=== PATIENT | female | born 1995 | race Caucasian/White ===

== ENCOUNTER 2017-03-22 23:11 | Inpatient (IN) ==
--- NOTE | 2017-03-22 21:58 | OB/GYN History & Physical ---
Date of Encounter: 03/22/17 Time of Encounter: 21:56 Assessment and Plan (1) 38 weeks gestation of Current visit: Yes Status: Acute (2) Uterine contractions Current visit: Yes Status: Acute SVE /-. Will allow pt to sit on birthing ball and/or walk. Plan to repeat SVE in 1-2 hours. History of Present Illness Chief complaint: contractions HPI: Ms. Garcia is a 21 year old female presenting at 38w 4d with c/o contractions that started around 1830 and are now every 5-6 minutes. Pt has a hx of fast labor and PPH due to retained placenta. She also reports urinary frequency and diarrhea today. No other complaints. Good FM. Past Med Surg Social Fam HX - Past Medical History Medical history: no medical history Psychiatric history: no psych history - Social History Smoking Status: Never smoker Smokeless Tobacco Status: No Alcohol use: none Drug use: none Obstetrical History - Pregnancies : 3 Para: 1 Term: 1 : 0 Ab's: 1 Livin - History/Complications History/Complications: PPH after discharge home. Found to have retained POC. Medications and Allergies Pnv No.122/Iron/Folic Acid [ Multi Tablet] 1 each PO DAILY 08/21/16 [ History] 3 Allergy/AdvReac Type Severity Reaction Status Date / Time No Known Allergies Allergy Verified 08/21/16 18:21 Review of System OB All systems PM: reviewed and no additional remarkable complaints except as stated Exam - Vital Signs Vital signs: Initial Vital Signs Temp Pulse Resp BP 99.0 F 96 16 140/69 03/22/17 21:42 03/22/17 21:42 03/22/17 21:42 03/22/17 21:42 - Constitutional Constitutional: well developed, well nourished, no acute distress - HEENT HEENT: Mucus Membranes Moist - Lungs Respiratory exam: CTAB - Cardiovascular Cardiovascular exam: RRR - Abdomen Abdomen: Present: gravid, non tender - Extremities Extremities exam: normal inspection, pedal edema (mild edema bilaterally) - Vulva Vulva: bilateral: normal - Cervix Dilation: 4 Effacement: 90 Station: -1 - Anus/Rectum Anus/Rectum: Present: normal perianal skin Results All other labs normal. - VTE Reasons for not Prescribing Prophylaxis: Treatment not Indicated - Low risk for VTE
[~2017-03-22 23:11] MED LIST: Famotidine 20 MG/2 ML VIAL IVP PRN; Metoclopramide 10 MG/2 ML VIAL IVP PRN
--- NOTE | 2017-03-22 23:14 | OB Labor Progress Note ---
Date of Encounter: 03/22/17 Time of Encounter: 23:06 Labor Progress Note - Subjective Subjective: Pt reports increased pain with contractions when she is in bed. - Cervix Cervix: 5/90/-1 - Heart Tones Heart Tones: Category I - Merriam Merriam: 2-3 minutes - Plan Plan: Admit for labor. Plan for AROM when able per pt request. Pt desires a natural labor. Will allow ambulation and positioning on birthing ball as long as FHT remain reassuring.
[2017-03-22 23:31] LABS: Basophils % 0.4 %; Eosinophils % 0.3 %; Hematocrit 28.8 % (35.3-44.9); Hemoglobin 9.7 g/dL (11.5-15.4); Immature Granulocytes % 0.5 % (0-4); Lymphocytes # 1.8 K/mcL (0.6-4.6); Lymphocytes % 16.3 %; Mean Corpuscular HGB Conc 33.7 g/dL (31.6-35.5); Mean Corpuscular Hemoglobin 29.8 pg (28.0-33.3); Mean Corpuscular Volume 88.3 fL (83.0-100.0); Mean Platelet Volume 11.4 fL (9.4-12.4); Monocytes # 0.6 K/mcL (0.0-1.3); Monocytes % 5.9 %; Neutrophils # 8.4 K/mcL (1.6-8.9); Platelet Count 236 K/mcL (140-400); Red Blood Count 3.26 M/mcL (3.82-4.97); Red Cell Distribution Width 13.1 % (11.5-14.5); Segmented Neutrophils % 76.6 %
[2017-03-23] MEDS ORDERED: Ringers Solution, Lactated 1,000 ML ONE (00:19)
[2017-03-23] MEDS ORDERED: Ringers Solution, Lactated 1,000 ML IVC SCH (00:30)
--- NOTE | 2017-03-23 03:23 | OB Labor Progress Note ---
Date of Encounter: 03/23/17 Time of Encounter: 03:21 Labor Progress Note - Subjective Subjective: Pt feels better when she is out of bed. - Heart Tones Heart Tones: Category I - Anton Anton: 2-4 minutes - Interventions Interventions: Pt up to bathroom to void and on birthing ball. - Plan Plan: Continue to monitor. Anticipate .
[2017-03-23] MEDS ORDERED: Oxytocin 20 units/ LR 1000 mL 20 UNIT/1,000 ML BAG IVC ONE ×2 (05:03→06:05)
[2017-03-23] MEDS ORDERED: Benzocaine/Menthol 56 GM AEROSOL SPRAY TP PRN ×2 (05:53→08:24)
[2017-03-23] MEDS ORDERED: Ibuprofen 600 MG TABLET PO ONE (05:53)
--- NOTE | 2017-03-23 06:02 | OB/GYN Procedure Note ---
Delivery - Delivery Date: 03/23/17 Provider: Nalini Harper Intrapartum events: none Delivery induction: none Delivery augmentation: rupture of membranes Delivery monitor: external FHT, external uterine Anesthesia: none Estimated Blood Loss: 450 - Infant (s) A Infant Delivery Date: 03/23/17 Infant Delivery Time: 05:24 Presentation: vertex Position: REBECCA Route of delivery: Gender: Male Viability: Viable Pounds: 7 Ounces: 15 Weight Gram: 3620 kg at 1 minute: 6 at 5 mins: 9 Shoulder Dystocia: encountered Shoulder Dystocia Maneuvers: Leandra maneuver, suprapubic pressure, Moya Screw maneuver, Reverse Moya Screw maneu Specimens collected: cord blood, venous cord gases, arterial cord gases Placenta: spontaneous (accessory lobe, marginal cord insertion) Cord: 3 umbilical vessels - Repair Episiotomy: none Laceration Description: None - Complications Delivery complications: uterine atony Delivery comments: Pt presented in active labor and progressed normally to complete dilation. She pushed effectively to of viable male weighing 7lbs 15oz with apgars 6 at one minute and 9 at five minutes. A shoulder dystocia was encountered. Dr. Bowen was called immediately to attend. McRobert's maneuver and suprapubic pressure did not resolve the dystocia. Moya screw maneuver was ineffective and reverse moya screw maneuver was effective to deliver anterior shoulder with maternal effort. The was not vigorous on the mother's abdomen so the cord was clamped and cut within about 30 seconds and the infant was taken to the warmer. Cord gases were requested. The placenta delivered spontaneous and intact and then brisk lochia was noted. Pitocin started immediately and bimanual compression was performed to manage bleeding. Methergine was then administered. Fundal tone then improved and lochia slowed. EBL 450ml. A thorough exam was performed and no repair was needed. Mother and baby stable in LDR following procedure. - Disposition Mom disposition: stable in LDR [place] disposition: stable in LDR
[2017-03-23] MEDS ORDERED: Acetaminophen 325 MG TABLET PO PRN (08:24)
[2017-03-23] MEDS ORDERED: Oxytocin 20 units/ LR 1000 mL 20 UNIT/1,000 ML BAG IVC SCH (08:24)
[2017-03-23] MEDS ORDERED: Measles/Mumps/Rubella Vacc 0.5 ML VIAL SQ PRN (08:24)
[2017-03-23] MEDS ORDERED: Lanolin 7 G OINT...G. TP PRN (08:24)
[2017-03-23] MEDS: Prenatal Vit/FA 1 EACH TABLET PO SCH (09:04)
[2017-03-23] MEDS: Ibuprofen 600 MG TABLET PO PRN ×2 (12:07→17:51)
[2017-03-23] MEDS ORDERED: Methylergonovine 0.2 MG/ML AMPUL IM ONE (15:28)
[2017-03-24] MEDS: Ibuprofen 600 MG TABLET PO PRN ×2 (02:01→08:16)
[2017-03-24] MEDS: Prenatal Vit/FA 1 EACH TABLET PO SCH (08:17)
--- NOTE | 2017-03-24 09:09 | Discharge Summary ---
Date of Encounter: 03/24/17 Time of Encounter: 09:07 - Discharge Diagnosis (1) Vaginal delivery Priority: Primary Status: Acute Comments: pt meeting all milestones, pain well managed on po pain medication, , desires discharge - Discharge Medications Prescriptions: Ibuprofen [Motrin] 600 mg PO Q6HR PRN #60 tab PRN Reason: Cramping Docusate [Colace] 100 mg PO BID #60 Ferrous Sulfate 325 mg PO DAILY #60 tab Home Medications: Pnv No.122/Iron/Folic Acid [ Multi Tablet] 1 each PO DAILY 08/21/16 [ History] Acetaminophen [Tylenol] 650 mg PO Q6HR PRN tab 03/24/17 [Rx] Benzocaine/Menthol [place] [Dermoplast [place]] 1 appl TP QID PRN aerosol 03/24/17 [Rx] Docusate [Colace] 100 mg PO BID #60 03/24/17 [Rx] Ferrous Sulfate 325 mg PO DAILY #60 tab 03/24/17 [Rx] Ibuprofen [Motrin] 600 mg PO Q6HR PRN #60 tab 03/24/17 [Rx] Lanolin [Lansinoh] 1 appl TP Q4HR PRN 03/24/17 [Rx] Mupirocin [Bactroban Oint] 1 appl TP BID 03/24/17 [Rx] Vit/FA 1 each PO DAILY tab 03/24/17 [Rx] Allergies/Adverse Reactions: 3 Allergy/AdvReac Type Severity Reaction Status Date / Time No Known Allergies Allergy Verified 08/21/16 18:21 Data Procedures and tests throughout hospitalization: Laboratory Tests 03/22/17 23:20 WBC 10.9 RBC 3.26 L Hgb 9.7 L Hct 28.8 L MCV 88.3 MCH 29.8 MCHC 33.7 RDW 13.1 Plt Count 236 MPV 11.4 Immature Gran % 0.5 Seg Neutrophils % 76.6 Lymphocytes % 16.3 Monocytes % 5.9 Eosinophils % 0.3 Basophils % 0.4 Neutrophils # 8.4 Lymphocytes # 1.8 Monocytes # 0.6 Eosinophils # 0.0 Basophils # 0.0 Date of admission: 03/22/17 23:11 Consults: 03/23/17 08:24 Consult to [employer] Developer [CONS] Routine Comment: Vaginal delivery, consult needed Discharging clinician: Shanda Wang Anticipated date of discharge: 03/24/17 - Patient Status Disposition: Home, Self-Care Condition: Good Functional capacity at discharge: independent ambulation Overall status at discharge: patient is back to baseline - Discharge Instructions Instructions: Your Baby (DC) - Diet and Activity Activity: resume usual activities as tolerated Diet: regular diet Hospital Course Reason for admission: IUP - Delivery: Episiotomy: none Laceration: none Other procedures: none complications: none Discharge diagnosis: IUP at term delivered [place] baby: male Hospital course: Delivery - Delivery Date: 03/23/17 Provider: Nalini Harper Intrapartum events: none Delivery induction: none Delivery augmentation: rupture of membranes Delivery monitor: external FHT, external uterine Anesthesia: none Estimated Blood Loss: 450 - (s) A Infant Delivery Date: 03/23/17 Delivery Time: 05:24 Presentation: vertex Position: REBECCA Route of delivery: Gender: Male Viability: Viable Pounds: 7 Ounces: 15 Weight Gram: 3620 kg at 1 minute: 6 at 5 mins: 9 Shoulder Dystocia: encountered Shoulder Dystocia Maneuvers: Leandra maneuver, suprapubic pressure, Baker Screw maneuver, Reverse Baker Screw maneu Specimens collected: cord blood, venous cord gases, arterial cord gases Placenta: spontaneous (accessory lobe, marginal cord insertion) Cord: 3 umbilical vessels - Repair Episiotomy: none Laceration Description: None - Complications Delivery complications: uterine atony Delivery comments: Pt presented in active labor and progressed normally to complete dilation. She pushed effectively to of viable male weighing 7lbs 15oz with apgars 6 at one minute and 9 at five minutes. A shoulder dystocia was encountered. Dr. Bowen was called immediately to attend. McRobert's maneuver and suprapubic pressure did not resolve the dystocia. Baker screw maneuver was ineffective and reverse baker screw maneuver was effective to deliver anterior shoulder with maternal effort. The infant was not vigorous on the mother's abdomen so the cord was clamped and cut within about 30 seconds and the was taken to the warmer. Cord gases were requested. The placenta delivered spontaneous and intact and then brisk lochia was noted. Pitocin started immediately and bimanual compression was performed to manage bleeding. Methergine was then administered. Fundal tone then improved and lochia slowed. EBL 450ml. A thorough exam was performed and no repair was needed. Mother and baby stable in LDR following procedure. - Disposition Mom disposition: stable in PP and apprpraite for discharge Time Attestation: Total time spent providing and/or coordinating discharge services: Time Spent: Less than 30 minutes Exam - Constitutional Vitals: Temp Pulse Resp BP Pulse Ox 97.9 F 64 16 109/72 99 03/24/17 02:05 03/24/17 02:05 03/24/17 02:05 03/24/17 02:05 03/24/17 02:05 General appearance IM: A&O X 3 - Respiratory Respiratory exam: Present: CTAB - Cardiovascular Cardiovascular exam IM: Present: RRR - GI/Abdominal GI/Abdominal exam IM: soft - Uterine Tone: Firm Uterus Position: At Umbilicus - Neurological Exam Neurological exam: normal gait, oriented X3, reflexes normal - Psychiatric Additional comments: reports good mood.
[2017-03-24 10:43] VITALS: BP 102/54
== END 2017-03-24 15:29 | disposition home or self-care (01) | DRG 560 ==
LOC: 1NENULAB → 1NENUOBS 03-23 09:39
PROVIDERS: ADMIT Registered Nurse; ATTEND Registered Nurse

== ENCOUNTER → 2021-01-07 11:30 | Observation (INO) ==
[2021-01-07 07:30] LABS: Basophils # 0.1 K/mcL (0.0-0.2); Basophils % 0.7 %; Eosinophils # 0.3 K/mcL (0.0-0.6); Eosinophils % 3.4 %; Hematocrit 38.3 % (35.3-44.9); Hemoglobin 12.6 g/dL (11.5-15.4); Immature Granulocytes % 0.5 % (0-4); Lymphocytes # 2.4 K/mcL (0.6-4.6); Lymphocytes % 29.2 %; Mean Corpuscular HGB Conc 32.9 g/dL (31.6-35.5); Mean Platelet Volume 10.5 fL (9.4-12.4); Monocytes # 0.5 K/mcL (0.0-1.3); Monocytes % 6.2 %; Neutrophils # 4.9 K/mcL (1.6-8.9); Platelet Count 313 K/mcL (140-400); Red Blood Count 4.35 M/mcL (3.82-4.97); Red Cell Distribution Width 12.2 % (11.5-14.5); White Blood Count 8.2 K/mcL (4.3-11.1)
[2021-01-07 10:50] VITALS: BP 113/54
[~2021-01-07 11:30] MED LIST changes: +*HR* FentaNYL (PF) 100 MCG/2 ML VIAL IVP PRN; +*HR* HYDROmorphone PF 0.5 MG/0.5 ML SYRINGE IVP PRN; +*HR* Midazolam HCl 2 MG/2 ML VIAL ONE; +*HR* Propofol 200 MG/20 ML VIAL IVP ONE; +CeFAZolin Syr 2,000MG/20 ML 2,000 MG/20 ML SYRINGE IVPB ONE; -Famotidine 20 MG/2 ML VIAL IVP PRN; +Lidocaine -MPF 2% 2 ML VIAL ONE; +Lidocaine HCL 4 ML Topical Solution (Laryng-O-Jet Kit Sterile Pak) TP ONE; +Methylergonovine 0.2 MG/ML AMPUL IM ONE; -Metoclopramide 10 MG/2 ML VIAL IVP PRN; +Ondansetron 4 MG/2 ML VIAL ONE; +Ringers Solution, Lactated 1,000 ML IVC SCH
== END | disposition home or self-care (01) ==
LOC: 1NENUPED
PROVIDERS: ADMIT Obstetrics & Gynecology; ATTEND Obstetrics & Gynecology